=== PATIENT | female | born 1935 | race Caucasian/White ===

== ENCOUNTER 2019-02-17 09:25 | Outpatient (CLI) | payer MEDICARE, OTHER ==
[2019-02-28 09:23] LABS: A1C 4.8 % (<5.7); BASOPHILS % 0.3 % (0.0-1.5); HDL 69 mg/dL (>40); MAGNESIUM 1.9 mIU/l (1.6-2.3); NEUTROPHILS # 3.1 # k/uL (1.4-7.7); eGFR (Non-African) > 60
== END 2019-02-17 09:27 ==
LOC: LAB 09:25
PROVIDERS: ATTEND Student in an Organized Health Care Education/Training Program
DX: Z13.21 Encounter for screening for nutritional disorder (principal); E56.9 Vitamin deficiency, unspecified; I10 Essential (primary) hypertension; E78.5 Hyperlipidemia, unspecified; E03.9 Hypothyroidism, unspecified; Z98.84 Bariatric surgery status
CPT/HCPCS: 36415; 80053; 80061; 82306; 82607; 82728; 82746; 83036; 83735; 84134; 84425; 84443; 84484; 85025